=== PATIENT | male | born 1950 | race Two or more races ===

== ENCOUNTER 2025-01-31 10:21 | Emergency (ER) | payer OTHER ==
[~2025-01-31] VITALS: Ht 165.1 cm; Wt 66.7 kg
[2025-01-31 10:28] VITALS: BP 132/84
[2025-01-31 11:45] LABS: PLATELET COUNT (AUTO) 250 K/uL (152-348); RED BLOOD CELL COUNT(AUTO) 4.62 MIL/uL (4.06-5.63); RED CELL DISTRIBUTION WIDTH 14.2 % (12.1-16.2); WHITE BLOOD COUNT (AUTO) 5.2 K/uL (3.6-10.2)
[2025-01-31] MEDS ORDERED: LIDOCAINE HCL 2% 20 ML VIAL ONE (13:14)
[2025-01-31] MEDS ORDERED: methylPREDNISolone ACETATE 40 MG VIAL ONE (13:14)
[2025-01-31] MEDS: methylPREDNISolone ACETATE 40 MG VIAL MC ONE (13:15)
[2025-01-31] MEDS: LIDOCAINE HCL 2% 20 ML VIAL IJ ONE (13:15)
[2025-01-31 13:34] LABS: CREATININE 0.9 mg/dL (0.6-1.3); SODIUM SERUM 140 mmol/L (136-145); UREA NITROGEN, BLOOD 21 mg/dL (7-18)
[2025-01-31] MEDS ORDERED: NAPR-1477 PO (14:29)
[2025-01-31 14:35] VITALS: BP 132/84; O2SAT 99
[2025-01-31 16:41] LABS: PROTEIN, BODY FLUID 4.0 G/DL; TOTAL VOLUME,BODY FLUID 20 mL; WBC, BODY FLUID 468 /cu. mm (0-200/cu.mm)
== END 2025-01-31 14:35 | disposition home or self-care (01) ==
LOC: ER 10:21
DX: M17.12 Unilateral primary osteoarthritis, left knee (principal); E11.9 Type 2 diabetes mellitus without complications
CPT/HCPCS: 99284; 80048; 84155; 84550; 85025; 89051 ×2; 36415; 73564; J1010; J3490; A4606; A4663